=== PATIENT | male | born 2005 | race Hispanic/Latino ===

== ENCOUNTER 2025-07-19 08:57 | Emergency (ER) | payer OTHER ==
[~2025-07-19] VITALS: Ht 167.6 cm; Wt 90.7 kg
[2025-07-19] MEDS ORDERED: ACET1TAB55 PO (09:14)
[2025-07-19 10:51] LABS: BASO # 0.1 10^3/uL (0.0-0.2); BASO % 0.5 % (0.0-1.0); EOS # 0.1 10^3/uL (0.0-0.5); EOS % 1.5 % (0.0-3.0); LYMPH # 1.6 10^3/uL (1.5-5.0); LYMPH % 16.9 % (24.0-44.0); MONO # 0.5 10^3/uL (0.0-0.8); MONO % 5.2 % (2.0-8.0); NEUTROPHILS # 7.1 10^3/uL (1.5-8.5); NEUTROPHILS % 75.6 % (36.0-66.0); PLATELET COUNT, AUTOMATED 459 10^3/uL (150-450)
[2025-07-19] MEDS: NS (Normal Saline) 0.9% 1,000 ML IV ONE ×2 (11:01→13:00)
[2025-07-19] MEDS: KETOROLAC 30 MG/ML 1 ML VIAL IV ONE (11:01)
[2025-07-19 11:18] LABS: CALCIUM LEVEL 9.6 MG/DL (8.5-10.1); CARBON DIOXIDE LEVEL 29 MMOL/L (20-31); CHLORIDE LEVEL 107 MMOL/L (98-107); CREATININE FOR GFR 0.84 MG/DL (0.70-1.30); GLOMERULAR FILTRATION RATE > 90.0 (>60); POTASSIUM SERUM 4.6 MMOL/L (3.5-5.1); SODIUM LEVEL 144 MMOL/L (136-145)
[2025-07-19] MEDS ORDERED: HOME MED LIST COMPLETE! XX SCH (11:30)
[2025-07-19 11:44] LABS: CPK CREATINE PHOSPHOKINASE 3234 U/L (46-171)
[2025-07-19 12:45] VITALS: TEMP 98.3
[2025-07-19 14:42] VITALS: BP 126/70
[2025-07-19 14:45] VITALS: O2SAT 99
== END 2025-07-19 14:59 | disposition home or self-care (01) ==
LOC: M ED 10:42
DX: M79.662 Pain in left lower leg (principal); R74.8 Abnormal levels of other serum enzymes
CPT/HCPCS: 73590; 80048; 82550; 83605; 85025; 96361; 96374; 99284; J1885